=== PATIENT | female | born 1960 | race Caucasian/White ===

== ENCOUNTER 2016-11-21 13:31 | Day surgery (SDC) | payer BC, OTHER ==
[~2016-11-21] VITALS: Ht 154.9 cm; Wt 65.8 kg
[2016-11-21 12:40] VITALS: Ht 154.9 cm; Wt 65.8 kg
[~2016-11-21 13:31] MED LIST: AMLO-147 PO; TRHC5025 PO
[2016-11-21 13:40] VITALS: BP 121/78; PULSE 67; RESP 18
[2016-11-21 14:45] VITALS: BP 118/78; RESP 20
--- NOTE | 2016-11-22 04:57 | GILP ---
DATE OF PROCEDURE: 11/21/2016 PREOPERATIVE DIAGNOSIS: Screening colonoscopy. POSTOPERATIVE DIAGNOSES: 1. Colonoscopy all the way to the cecum. 2. Prominent sigmoid fold was biopsied. 3. Internal hemorrhoids. PROCEDURE PERFORMED: Colonoscopy and biopsy. SURGEON: Nadia Bradford MD. INDICATION FOR PROCEDURE: Ms. Dutch Black is a 56-year-old female patient who was scheduled for screening colonoscopy. The procedure and possible complications were well explained to the patient. She understood and consented to the procedure. DESCRIPTION OF PROCEDURE: Under the influence of anesthesia the colonoscope was carefully introduced in the rectum and under direct vision it was advanced all the way to the cecum. Findings, the patient had a prominent sigmoid fold and biopsies were taken for histopathology. She was noted to have internal hemorrhoids. No gross neoplasm was identified. The patient tolerated the procedure very well and there was no complications from the procedure. At the end of procedure she was awake with stable vital signs and she was discharged home in the care of her family. IMPRESSION: 1. Colonoscopy all the way to the cecum. 2. Prominent sigmoid fold was biopsied. 3. Internal hemorrhoids. 4. No colon neoplasm was identified. PLAN: 1. Await histopathology report. 2. Next screening colonoscopy in 10 years. Dictated By: MD ROXY Huddleston/zaida/lyly /Document#: [id number] CC: Nadia Bradford MD;*End*
[2016-11-22] MEDS ORDERED: PROPOFOL 60 ML ONE (18:02)
[2016-11-22] MEDS ORDERED: LIDOCAINE 2% (SDV) 5 ML INJ ONE (18:02)
== END 2016-11-21 14:51 | disposition home or self-care (01) ==
LOC: GIL 13:31
PROVIDERS: ATTEND Internal Medicine Gastroenterology
DX: Z12.11 Encounter for screening for malignant neoplasm of colon (principal); D12.5 Benign neoplasm of sigmoid colon; K64.8 Other hemorrhoids; I10 Essential (primary) hypertension; J44.9 Chronic obstructive pulmonary disease, unspecified; E66.9 Obesity, unspecified; Z68.27 Body mass index [BMI] 27.0-27.9, adult; Z87.891 Personal history of nicotine dependence
CPT/HCPCS: 45380; 88305; Z7610